=== PATIENT | male | born 1940 | race Caucasian/White ===

== ENCOUNTER 2019-08-12 15:26 | Outpatient (RCR) | payer SELFPAY ==
[~2019-08-12 15:26] MED LIST: CIPRO 500MG TA500 MG PO; FLOMAX 0.40.4 MG/CAP PO; PERCOCET 325 MG1 TA2 PO; PHENERGAN 25 TA25 MG PO; PHENERGAN25 MG RC; TUMS500 MG PO; ZANTAC 150MG T150 MG PO; [UNRECOGNIZED DRUG - CODE] PO
== END 2019-11-10 | disposition home or self-care (01) ==
LOC: MKS.ESL.PT
DX: R26.89 Other abnormalities of gait and mobility (principal)

== ENCOUNTER 2021-04-11 14:00 | Outpatient (RCR) | payer OTHER | END 2021-05-29 | disposition still patient (30) | LOC: MKS.ESL.PT | DX: M25.552 Pain in left hip (principal) ==